=== PATIENT | male | born 1975 | race Hispanic/Latino ===

== ENCOUNTER 2016-11-23 14:32 | Emergency (ER) | payer SELFPAY ==
[2016-11-23 14:32] VITALS: BMI 21.5
[2016-11-23 14:38] VITALS: PULSE 82; RESP 20; TEMP 97.6; O2SAT 100
[2016-11-23 15:04] VITALS: BP 130/70
--- NOTE | 2016-11-23 15:38 | ED PDOC ---
HPI: Headache Time Seen by Provider: 11/23/16 14:40 Chief Complaint (Nursing): Headache Chief Complaint (Provider): Headache History Per: Patient History/Exam Limitations: no limitations Onset/Duration Of Symptoms: Persistent Current Symptoms Are (Timing): Still Present Severity: Moderate Additional Complaint(s): The patient is a 41yo male, PMHx of cluster headaches, seizures, presents to the ED for evaluation of headache. Pt reports his pain is chronic, states he used to take Imitrex but has not used it in "years". Denies any new symptoms. Pt offers no additional medical complaints. Past Medical History Reviewed: Historical Data, Nursing Documentation, Vital Signs Vital Signs: Last Vital Signs Temp 97.6 F 11/23/16 14:34 Pulse 82 11/23/16 14:34 Resp 20 11/23/16 14:34 BP 130/70 11/23/16 15:04 Pulse Ox 100 11/23/16 14:34 - Medical History PMH: Anemia, Anxiety, Depression, Fractures, Kidney Stones, Migraine (Cluster Headaches), Chronic Kidney Disease, Seizures, Chronic Pain (chronic back pain) Denies: Diabetes, Hepatitis, HIV, HTN, Sexually Transmitted Disease - Surgical History Surgical History: Back Surgery - Family History Family History: States: Unknown Family Hx - Social History Current smoker - smoking cessation education provided: Yes (5 cigarettes per day ) Drugs: Other ("dope") - Immunization History Hx Tetanus Toxoid Vaccination: No Hx Influenza Vaccination: No Hx Pneumococcal Vaccination: No - Home Medications Home Medications: Ambulatory Orders Medication Instructions Recorded Ibuprofen [Motrin] 600 mg PO Q6 PRN #20 tab 09/12/14 Oxycodone HCl/Acetaminophen 1 tab PO Q4 #10 tab 09/12/14 [Percocet 325 mg-5 mg] diaZEpam [Valium] 5 mg PO BID PRN #10 tab 09/12/14 levETIRAcetam [Keppra] 500 mg PO BID #0 tab 08/07/15 ALPRAZolam [Xanax] 1 mg PO BID 09/04/15 Oxycodone HCl [Roxicodone] 15 mg PO BID 09/04/15 Meclizine [Meclizine*] 25 mg PO Q8 PRN #12 tab 09/05/15 Acetaminophen [Acetaminophen Extra 1,000 mg PO Q6 PRN #60 tablet 10/04/15 Strength] Naproxen [Naprosyn] 1 tab PO BID PRN #60 tab 10/04/15 Oseltamivir Phosphate [Tamiflu] 75 mg PO BID #10 capsule 10/04/15 - Allergies Allergies/Adverse Reactions: Allergies Allergy/AdvReac Type Severity Reaction Status Date / Time No Known Allergies Allergy Verified 09/12/14 18:52 Review of Systems ROS Statement: Except As Marked, All Systems Reviewed And Found Negative Neurological: Positive for: Headache (hx of cluster headaches, chronic) Physical Exam - Reviewed Nursing Documentation Reviewed: Yes Vital Signs Reviewed: Yes - Physical Exam Appears: Positive for: Well, Non-toxic, No Acute Distress Head Exam: Positive for: ATRAUMATIC, NORMAL INSPECTION, NORMOCEPHALIC Skin: Positive for: Normal Color Eye Exam: Positive for: Normal appearance Neck: Positive for: Normal Cardiovascular/Chest: Positive for: Regular Rate, Rhythm Respiratory: Positive for: Normal Breath Sounds. Negative for: Respiratory Distress Gastrointestinal/Abdominal: Positive for: Normal Exam Extremity: Positive for: Normal ROM Neurologic/Psych: Positive for: Alert, web marketing manager II-XII, Oriented, Gait (stable). Negative for: Motor/Sensory Deficits, Aphasia - Laboratory Results Result Diagrams: 11/23/16 15:59 11/23/16 16:15 - ECG O2 Sat by Pulse Oximetry: 100 (RA) Pulse Ox Interpretation: Normal Medical Decision Making Medical Decision Making: Time: 1530 Impression: headache Possible seizure vs. cluster headaches Plan: -- CT Head -- Reglan 10 mg IVP -- Bloodwork Reassess Time: 1700 CT Head IMPRESSION: No acute intracranial abnormality. Mild age-related global parenchymal volume loss. Time: 1800 Labs reviewed and shows slight anemia, no other pertinent findings, patient aware Pt stable for discharge home. Scribe Attestation: Documented by Elizabeth Ramos acting as a scribe for Hina Logan MD. Provider Attestation: All medical record entries made by the Scribe were at my direction and personally dictated by me. I have reviewed the chart and agree that the record accurately reflects my personal performance of the history, physical exam, medical decision making, and the department course for this patient. I have also personally directed, reviewed, and agree with the discharge instructions and disposition. Disposition - Clinical Impression Clinical Impression: Headache - Patient ED Disposition Is Patient to be Admitted: No Counseled Patient/Family Regarding: Studies Performed, Diagnosis, Need For Followup - Disposition Referrals: [facility] [Outside] [facility] [Outside] Disposition: Routine/Home Disposition Time: 16:00 Condition: IMPROVED Additional Instructions: follow up with your primary doctor in 1-2 days return to the ED with any worsening or concerning symptoms. Instructions: Acute Headache (ED)
[2016-11-23 16:39] LABS: BASO % 0.3 % (0.0-2.0); EOS % 0.4 % (0.0-4.0); HEMOGLOBIN 11.7 g/dL (12.0-18.0); LYMPH # 0.8 K/uL (1.0-4.3); LYMPH % 8.6 % (20.0-40.0); MEAN CELL VOLUME 84.7 fl (80.0-94.0); MEAN CORPUSCULAR HEMOGLOBIN 27.9 pg (27.0-31.0); MEAN CORPUSCULAR HGB CONC 32.9 g/dL (33.0-37.0); MEAN PLATELET VOLUME 7.8 fl (7.2-11.7); MONO % 10.8 % (0.0-10.0); NEUT # 7.2 K/uL (1.8-7.0); NEUT % 79.9 % (50.0-75.0); PLATELET COUNT 199 K/uL (130-400); RBC 4.19 Mil/uL (4.40-5.90); RED CELL DISTRIBUTION WIDTH 15.6 % (11.5-14.5)
--- NOTE | 2016-11-23 16:46 | CT ---
PROCEDURE: CT HEAD WITHOUT CONTRAST. HISTORY: Headache COMPARISON: None available. TECHNIQUE: Axial computed tomography images were obtained through the head/brain without intravenous contrast. Radiation dose: Total exam DLP = 858.04 mGy-cm. This CT exam was performed using one or more of the following dose reduction techniques: Automated exposure control, adjustment of the mA and/or kV according to patient size, and/or use of iterative reconstruction technique. FINDINGS: HEMORRHAGE: No intracranial hemorrhage. BRAIN: Nguyen-white matter differentiation is preserved. There is no mass, mass effect or abnormal extra-axial fluid collection. There is no territorial infarction. VENTRICLES: There is mild global parenchymal volume loss and proportionate enlargement of the ventricles, slightly advanced for the patient's age. . CALVARIUM: There is no calvarial fracture or extracranial soft tissue swelling. PARANASAL SINUSES: Predominantly clear. MASTOID AIR CELLS: Predominantly clear. OTHER FINDINGS: None. IMPRESSION: No acute intracranial abnormality. Mild age-related global parenchymal volume loss.
[2016-11-23 16:51] LABS: ALT/SGPT 39 U/L (21-72); AST/SGOT 25 U/L (17-59); BLOOD UREA NITROGEN 12 mg/dl (9-20); GFR AFRICAN-AMERICAN > 60; GFR NON-AFRICAN AMERICAN > 60
[2016-11-23 17:47] LABS: BANDS 3 % (0-2); LYMPHOCYTE 10 % (20-50); MONOCYTE 11 % (0-10); NEUTROPHIL 76 % (42-75); PLATELET ESTIMATE NORMAL (NORMAL); TOTAL CELLS COUNTED 100
[2016-11-23 17:48] LABS: ANISOCYTOSIS SLIGHT; HYPOCHROMIC SLIGHT; MICROCYTOSIS SLIGHT; POIKILOCYTOSIS SLIGHT
== END 2016-11-23 19:21 | disposition home or self-care (01) ==
LOC: H.ER 14:32
DX: R51 Headache (principal)
CPT/HCPCS: 70450; 80053; 85025; 96374; 99282; J2765

== ENCOUNTER 2016-12-22 03:53 | Emergency (ER) | payer OTHER ==
[2016-12-22 03:53] VITALS: BMI 21.5
[2016-12-22 03:59] VITALS: BP 135/78; PULSE 78; RESP 17; TEMP 98.1; O2SAT 99
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
== END 2016-12-22 05:08 | disposition home or self-care (01) ==
LOC: H.ER 03:53
DX: R68.84 Jaw pain (principal)

== ENCOUNTER 2017-03-04 08:00 | Emergency (ER) | payer MEDICAID ==
[2017-03-04 08:07] VITALS: BP 105/62; PULSE 51; RESP 16; TEMP 96.5; O2SAT 100
[2017-03-04 08:08] VITALS: BMI 23.1
--- NOTE | 2017-03-04 08:43 | ED PDOC ---
Lower Extremity Pain/Injury Time Seen by Provider: 03/04/17 08:09 Chief Complaint (Nursing): Lower Extremity Problem/Injury Chief Complaint (Provider): Left foot pain History Per: Patient History/Exam Limitations: no limitations Onset/Duration Of Symptoms: Days (x4) Current Symptoms Are (Timing): Still Present Additional Complaint(s): Aquiles is a 41 y/o male who presents to the ED for evaluation of left foot pain for 4 days. Patient able to ambulate. He denies direct trauma or injury to the foot. Patient is not cooperative with history. PMD: None Past Medical History Reviewed: Historical Data, Nursing Documentation, Vital Signs Vital Signs: Last Vital Signs Temp 96.5 F L 03/04/17 08:06 Pulse 51 L 03/04/17 08:06 Resp 16 03/04/17 08:06 BP 105/62 03/04/17 08:06 Pulse Ox 100 03/04/17 08:06 - Medical History PMH: Anemia, Anxiety, Depression, Fractures, Kidney Stones, Migraine (Cluster Headaches), Chronic Kidney Disease, Seizures, Chronic Pain (chronic back pain) Denies: Diabetes, Hepatitis, HIV, HTN, Sexually Transmitted Disease - Surgical History Surgical History: Back Surgery - Family History Family History: States: Unknown Family Hx - Social History Current smoker - smoking cessation education provided: Yes Alcohol: None Drugs: Opiates - Immunization History Hx Tetanus Toxoid Vaccination: No Hx Influenza Vaccination: No Hx Pneumococcal Vaccination: No - Home Medications Home Medications: Ambulatory Orders Medication Instructions Recorded Ibuprofen [Motrin] 600 mg PO Q6 PRN #20 tab 09/12/14 Oxycodone HCl/Acetaminophen 1 tab PO Q4 #10 tab 09/12/14 [Percocet 325 mg-5 mg] diaZEpam [Valium] 5 mg PO BID PRN #10 tab 09/12/14 levETIRAcetam [Keppra] 500 mg PO BID #0 tab 08/07/15 ALPRAZolam [Xanax] 1 mg PO BID 09/04/15 Oxycodone HCl [Roxicodone] 15 mg PO BID 09/04/15 Meclizine [Meclizine*] 25 mg PO Q8 PRN #12 tab 09/05/15 Acetaminophen [Acetaminophen Extra 1,000 mg PO Q6 PRN #60 tablet 05/16/16 Strength] Naproxen [Naprosyn] 1 tab PO BID PRN #60 tab 10/04/15 Oseltamivir Phosphate [Tamiflu] 75 mg PO BID #10 capsule 10/04/15 - Allergies Allergies/Adverse Reactions: Allergies Allergy/AdvReac Type Severity Reaction Status Date / Time No Known Allergies Allergy Verified 03/04/17 08:12 Review of Systems ROS Statement: Except As Marked, All Systems Reviewed And Found Negative Musculoskeletal: Positive for: Foot Pain (Left) Physical Exam - Reviewed Nursing Documentation Reviewed: Yes Vital Signs Reviewed: Yes - Physical Exam Appears: Positive for: Well, Non-toxic, No Acute Distress Extremity: Positive for: Normal ROM, Other (Left plantar foot with maceration, but no erythema or edema) Neurologic/Psych: Positive for: Alert, Oriented - ECG O2 Sat by Pulse Oximetry: 100 (RA) Pulse Ox Interpretation: Normal Medical Decision Making Medical Decision Making: Clinical Impression: Skin maceration Upon provider evaluation patient is medically stable, and requires no further treatment in the ED at this time. Patient will be discharged home. Counseling was provided and all questions were answered regarding diagnosis and need for follow up with Podiatry clinic. There is agreement to discharge plan. Return if symptoms persist or worsen. Scribe Attestation: Documented by Jany Arreaga, acting as a scribe for Claudia Ny MD Provider Scribe Attestation: All medical record entries made by the Scribe were at my direction and personally dictated by me. I have reviewed the chart and agree that the record accurately reflects my personal performance of the history, physical exam, medical decision making, and the department course for this patient. I have also personally directed, reviewed, and agree with the discharge instructions and disposition. Disposition - Clinical Impression Clinical Impression: Skin maceration - Patient ED Disposition Is Patient to be Admitted: No Counseled Patient/Family Regarding: Diagnosis, Need For Followup - Disposition Referrals: Podiatry Clinic [Outside] Disposition: Routine/Home Disposition Time: 08:35 Condition: STABLE Instructions: Itchy Skin (ED) Forms: [employer] (Irish)
== END 2017-03-04 09:37 | disposition home or self-care (01) ==
LOC: H.ER 08:00
DX: R23.8 Other skin changes (principal)

== ENCOUNTER 2017-05-03 14:54 | Emergency (ER) | payer OTHER ==
[2017-05-03 14:55] VITALS: BMI 23.1
[2017-05-03] MEDS ORDERED: Atropine-Diphenoxylate 0.025-2.5 mg Tab PO STA (15:48)
--- NOTE | 2017-05-03 16:05 | ED PDOC ---
HPI: Abdomen Time Seen by Provider: 05/03/17 15:35 Chief Complaint (Nursing): Abdominal Pain Chief Complaint (Provider): Abdominal pain and diarrhea History Per: Patient History/Exam Limitations: no limitations Onset/Duration Of Symptoms: Days (4) Additional Complaint(s): Patient is a 41 y/o undomiciled male with a past medical history of depression and opiate dependence presenting to the emergency department for stomach pain and diarrhea ongoing for four days. Describes the pain as an abdominal cramping quality that occurs intermittently in a waxing and waning manner. Notes no changes to his diet, which consists of whatever I can get a hold of ( referring to pizza and [employer]). Reports that the diarrhea is watery, brown, and non-bloody with three or four episodes occurring each day since onset. Denies loss of appetite, nausea, vomiting, or other complaints. Also notes taking Pepto-Bismol and Imodium without any significant relief. Of note, patient was recently hospitalized for a left arm infection due to a retained needle in his arm, secondary to IV drug abuse. Admits that since his discharge he has not continued his antibiotic treatment as prescribed. Denies any fever or changes in his arm. PCP: none provided. Past Medical History Reviewed: Historical Data, Nursing Documentation, Vital Signs Vital Signs: Last Vital Signs Temp 97.5 F L 05/03/17 15:08 Pulse 74 05/03/17 15:08 Resp 18 05/03/17 15:08 BP 108/60 05/03/17 15:08 Pulse Ox 100 05/03/17 16:13 - Medical History PMH: Anemia, Anxiety, Depression, Fractures, Kidney Stones, Migraine (Cluster Headaches), Chronic Kidney Disease, Seizures, Chronic Pain (chronic back pain) Denies: Diabetes, Hepatitis, HIV, HTN, Sexually Transmitted Disease - Surgical History Surgical History: Back Surgery Other surgeries: Bilateral knee surgery - Family History Family History: States: No Known Family Hx - Living Arrangements Living Arrangements: Other (undomiciled) - Social History Current smoker - smoking cessation education provided: Yes Ex-Smoker (has not smoked in the last 12 months): No Alcohol: None Drugs: Opiates (heroin) - Immunization History Hx Tetanus Toxoid Vaccination: No Hx Influenza Vaccination: No Hx Pneumococcal Vaccination: No - Home Medications Home Medications: Ambulatory Orders Medication Instructions Recorded Amoxicillin/Clavulanate [Augmentin 1 tab PO Q8 #32 tab 04/20/17 500 MG-125 MG Tab] Doxycycline Hyclate [Doryx] 100 mg PO Q12 #8 cap 04/20/17 Atropine/Diphenoxylate [Lonox 2 tab PO Q6 PRN #30 tab 05/03/17 0.025 MG-2.5 MG] Ciprofloxacin [Cipro] 1 tab PO BID #20 tab 05/03/17 metroNIDAZOLE [Flagyl] 500 mg PO TID #30 tab 05/03/17 - Allergies Allergies/Adverse Reactions: Allergies Allergy/AdvReac Type Severity Reaction Status Date / Time No Known Allergies Allergy Verified 04/19/17 02:53 Review of Systems ROS Statement: Except As Marked, All Systems Reviewed And Found Negative Constitutional: Negative for: Fever, Other (change in appetite) Gastrointestinal: Positive for: Abdominal Pain (cramping, intermittent, waxing and waning), Diarrhea (watery, brown, non-bloody). Negative for: Nausea, Vomiting Physical Exam - Reviewed Nursing Documentation Reviewed: Yes Vital Signs Reviewed: Yes - Physical Exam Appears: Positive for: No Acute Distress (On my initial arrival to room, pt sleeping deeply and comfortably, needed to yell loudly in order to rouse) Skin: Positive for: Warm, Dry (multiple linear scars to hands and arms) Gastrointestinal/Abdominal: Positive for: Bowel Sounds, Soft. Negative for: Tenderness, Mass, Distended, Guarding, Rebound Extremity: Positive for: Swelling (LEFT forearm: swelling to forearm without erythema or purulence) Neurologic/Psych: Positive for: Alert. Negative for: Motor/Sensory Deficits - ECG O2 Sat by Pulse Oximetry: 100 (RA) Pulse Ox Interpretation: Normal Medical Decision Making Medical Decision Making: Time: 15:48 Initial Impression: Diarrhea and abdominal pain Differential diagnoses include but are not limited to antibiotic associated diarrhea, C Diff colitis, and gastroenteritis. Initial Plan: Atropine/Diphenoxylate 2 tab PO Bentyl 20 mg PO Stool Culture C Diff toxin stat Reevaluation Patients chart from recent hospitalization at [facility] was reviewed. Noted that patient was given IV antibiotics and advised to continue course of Augmentin and doxycycline treatment. Pt in no distress. Vitals stable. Sleeps comfortably in room. No diarrhea episodes in ER. Will treat empirically and stable for discharge to follow up outpatient. Scribe Attestation: Documented by Ailyn Dhillon, acting as a scribe for Elvira Geronimo MD. Provider Scribe Attestation: All medical record entries made by the Scribe were at my direction and personally dictated by me. I have reviewed the chart and agree that the record accurately reflects my personal performance of the history, physical exam, medical decision making, and the department course for this patient. I have also personally directed, reviewed, and agree with the discharge instructions and disposition. Disposition - Clinical Impression Clinical Impression: Abdominal pain, Diarrhea Counseled Patient/Family Regarding: Studies Performed, Diagnosis, Need For Followup, Rx Given - Disposition Referrals: [facility] [Outside] - 05/04/17 Disposition: Routine/Home Disposition Time: 17:12 Condition: GOOD Prescriptions: Atropine/Diphenoxylate [Lonox 0.025 MG-2.5 MG] 2 tab PO Q6 PRN #30 tab PRN Reason: Diarrhea Ciprofloxacin [Cipro] 1 tab PO BID #20 tab metroNIDAZOLE [Flagyl] 500 mg PO TID #30 tab Instructions: Acute Diarrhea (ED), Nutrition Tips for Relief of Diarrhea (ED)
[2017-05-03 18:35] VITALS: BP 126/76; PULSE 78; RESP 16; TEMP 97.6; O2SAT 98
== END 2017-05-03 18:38 | disposition home or self-care (01) ==
LOC: H.ER 14:54
DX: R10.9 Unspecified abdominal pain (principal); R19.7 Diarrhea, unspecified; F32.9 Major depressive disorder, single episode, unspecified; G89.29 Other chronic pain; F41.9 Anxiety disorder, unspecified; F17.200 Nicotine dependence, unspecified, uncomplicated; Z87.442 Personal history of urinary calculi

== ENCOUNTER 2017-08-20 17:31 | Emergency (ER) | payer OTHER ==
[2017-08-20 17:31] VITALS: BMI 23.1
[2017-08-20 17:42] VITALS: BP 109/72; PULSE 84; RESP 18; TEMP 97.7; O2SAT 98
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
== END 2017-08-20 20:15 | disposition home or self-care (01) ==
LOC: H.ER 17:31
DX: S93.402A Sprain of unspecified ligament of left ankle, initial encounter (principal); Y04.0XXA Assault by unarmed brawl or fight, initial encounter; Y92.89 Other specified places as the place of occurrence of the external cause; F32.9 Major depressive disorder, single episode, unspecified; F41.9 Anxiety disorder, unspecified

== ENCOUNTER 2017-09-15 12:34 | Emergency (ER) | payer OTHER ==
[2017-09-15 12:34] VITALS: BMI 23.1
[2017-09-15 12:41] VITALS: BP 128/78; PULSE 98; RESP 18; TEMP 98.3; O2SAT 99
--- NOTE | 2017-09-15 14:06 | ED PDOC ---
HPI: Psych/Substance Abuse Time Seen by Provider: 09/15/17 12:48 Chief Complaint (Nursing): Substance Abuse Chief Complaint (Provider): Substance Abuse History Per: Patient History/Exam Limitations: no limitations Onset/Duration Of Symptoms: Days (09/15/17) Modifying Factor(s): Other (heroin) Associated Symptoms: Anxiety. denies: Depression, Suicidal Thoughts, Suicidal Plan Additional Complaint(s): 42 yo M brought to the ED by EMS after he was found sleeping outside of [facility]. Patient admits to using 1 bag of heroin today. Patient is also homeless and has a history of anxiety and takes xanax. Otherwise: (-) hallucinations, (-) suicidal ideation, (-) homicidal ideation, (-) trauma, (-) fever, (-) headache, (-) injuries (-) dyspnea, (-) vomiting, (-) nausea, (-) abdominal pain (-) depression, (-) any other complaints at all. PMD: Unruly Newman Past Medical History Reviewed: Historical Data, Nursing Documentation, Vital Signs Vital Signs: Last Vital Signs Temp 98.3 F 09/15/17 12:36 Pulse 98 H 09/15/17 12:36 Resp 18 09/15/17 12:36 BP 128/78 09/15/17 12:36 Pulse Ox 99 09/15/17 12:36 - Medical History PMH: Anemia, Anxiety, Depression, Fractures, Hepatitis, Kidney Stones, Migraine (Cluster Headaches), Chronic Kidney Disease, Seizures, Chronic Pain (chronic back pain) Denies: Diabetes, HIV, HTN, Sexually Transmitted Disease - Surgical History Surgical History: Back Surgery - Family History Family History: States: Unknown Family Hx - Social History Current smoker - smoking cessation education provided: Yes (Light Smoker < 10 Cigarettes Daily) Drugs: Other (heroin) - Immunization History Hx Tetanus Toxoid Vaccination: No Hx Influenza Vaccination: No Hx Pneumococcal Vaccination: No - Home Medications Home Medications: Ambulatory Orders Medication Instructions Recorded Amoxicillin/Clavulanate [Augmentin 1 tab PO Q8 #32 tab 04/20/17 500 MG-125 MG Tab] Doxycycline Hyclate [Doryx] 100 mg PO Q12 #8 cap 04/20/17 Atropine/Diphenoxylate [Lonox 2 tab PO Q6 PRN #30 tab 05/03/17 0.025 MG-2.5 MG] Ciprofloxacin [Cipro] 1 tab PO BID #20 tab 05/03/17 metroNIDAZOLE [Flagyl] 500 mg PO TID #30 tab 05/03/17 - Allergies Allergies/Adverse Reactions: Allergies Allergy/AdvReac Type Severity Reaction Status Date / Time No Known Allergies Allergy Verified 04/19/17 02:53 Review of Systems ROS Statement: Except As Marked, All Systems Reviewed And Found Negative Constitutional: Negative for: Fever Gastrointestinal: Negative for: Nausea, Vomiting, Abdominal Pain Neurological: Negative for: Headache, Other (trauma) Psych: Positive for: Anxiety. Negative for: Depression, Suicidal ideation ( homicidal ideation) Physical Exam - Physical Exam Comments: GENERAL APPEARANCE: Patient is awake, alert, oriented x 3, in no acute distress , is ill kept. SKIN: Warm, dry; (-) cyanosis HEAD: (-) scalp swelling, (-) scalp tenderness. EYES: (-) conjunctival pallor, (-) scleral icterus, (-) nystagmus. ENMT: Mucous membranes moist. Airway patent: (-) stridor. NECK: (-) tenderness, (-) stiffness, (-) lymphadenopathy. CHEST AND RESPIRATORY: (-) rales, (-) rhonchi, (-) wheezes; breath sounds equal. ABDOMEN: Soft, (-) distention, (-) tenderness, (-) guarding. NEURO AND PSYCH: Mental status as above. Affect: Calm and cooperative. scale installer: Intact. Pupils equal and reactive; EOMI; (-) facial asymmetry; tongue and uvula midline. Strength symmetric. - ECG O2 Sat by Pulse Oximetry: 99 (RA) Pulse Ox Interpretation: Normal Medical Decision Making Medical Decision Making: Time: 1248 Patient presents in no acute distress, is awake, alert and oriented x3 with an otherwise normal exam. VS wnl. There is no further need for any emergent treatment or diagnostic workup necessary at this time. Advised to follow up with the clinic in 1-2 days without fail. Return to the emergency room at any time for any new or worsening symptoms. Patient states he fully agrees with and understands discharge instructions. States that he agrees with the plan and disposition. Verbalized and repeated discharge instructions and plan. I have given the patient opportunity to ask any additional questions. Scribe Attestation: Documented by Rowan Fink, acting as a scribe for Anastasia Quesada PA-C Provider Scribe Attestation: All medical record entries made by the Scribe were at my direction and personally dictated by me. I have reviewed the chart and agree that the record accurately reflects my personal performance of the history, physical exam, medical decision making, and the department course for this patient. I have also personally directed, reviewed, and agree with the discharge instructions and disposition. Disposition - Clinical Impression Clinical Impression: History of heroin use - Patient ED Disposition Is Patient to be Admitted: No - Disposition Referrals: [facility] [Outside] Disposition: Routine/Home Disposition Time: 13:00 Condition: STABLE Instructions: Drug Abuse and Drug Addiction (DC) Forms: [employer] (Hungarian) - PA / FACILITIES OFFICER / Resident Statement MD/ has reviewed & agrees with the documentation as recorded.
== END 2017-09-15 13:28 | disposition home or self-care (01) ==
LOC: H.ER 12:34
DX: F11.20 Opioid dependence, uncomplicated (principal)

== ENCOUNTER 2017-10-16 22:13 | Emergency (ER) | payer OTHER ==
[2017-10-16 22:13] VITALS: BMI 23.1
== END 2017-10-16 22:50 | disposition left against medical advice (07) ==
LOC: H.ER 22:13
DX: Z02.89 Encounter for other administrative examinations (principal)

== ENCOUNTER 2018-04-06 14:17 | Emergency (ER) | payer SELFPAY ==
[2018-04-06 14:18] VITALS: BMI 23.1
[2018-04-06 14:24] VITALS: RESP 14; TEMP 98; O2SAT 92
[2018-04-06 14:43] VITALS: BP 136/78
--- NOTE | 2018-04-06 15:06 | ED PDOC ---
HPI: Psych/Substance Abuse Time Seen by Provider: 04/06/18 14:22 Chief Complaint (Nursing): Substance Abuse Chief Complaint (Provider): heroin use History Per: Patient, EMS Additional Complaint(s): 42-year-old male presents for evaluation for possible substance abuse. Patient was found asleep on the sidewalk. He admits to using heroin today. Of any other drugs and denies any alcohol use. PMD: none Past Medical History Reviewed: Historical Data, Nursing Documentation, Vital Signs Vital Signs: Last Vital Signs Temp 98.0 F 04/06/18 14:23 Pulse 89 04/06/18 14:23 Resp 14 04/06/18 14:23 BP Pulse Ox 92 L 04/06/18 14:23 - Medical History PMH: Anemia, Anxiety, Depression, Fractures, Hepatitis, Kidney Stones, Migraine (Cluster Headaches), Chronic Kidney Disease, Seizures, Chronic Pain (chronic back pain) - Surgical History Surgical History: Back Surgery - Family History Family History: States: No Known Family Hx - Living Arrangements Living Arrangements: Other (non-domiciled) - Social History Current smoker - smoking cessation education provided: Yes Alcohol: Social Drugs: Opiates - Home Medications Home Medications: Ambulatory Orders Medication Instructions Recorded Amoxicillin/Clavulanate [Augmentin 1 tab PO Q8 #32 tab 04/20/17 500 MG-125 MG Tab] Doxycycline Hyclate [Doryx] 100 mg PO Q12 #8 cap 04/20/17 Atropine/Diphenoxylate [Lonox 2 tab PO Q6 PRN #30 tab 05/03/17 0.025 MG-2.5 MG] Ciprofloxacin [Cipro] 1 tab PO BID #20 tab 05/03/17 metroNIDAZOLE [Flagyl] 500 mg PO TID #30 tab 05/03/17 - Allergies Allergies/Adverse Reactions: Allergies Allergy/AdvReac Type Severity Reaction Status Date / Time No Known Allergies Allergy Verified 04/06/18 14:23 Review of Systems ROS Statement: Except As Marked, All Systems Reviewed And Found Negative Psych: Positive for: Other (heroin abuse). Negative for: Suicidal ideation Physical Exam - Reviewed Nursing Documentation Reviewed: Yes Vital Signs Reviewed: Yes - Physical Exam Appears: Positive for: Well, Non-toxic, No Acute Distress Skin: Positive for: Normal Color. Negative for: Rash Eye Exam: Positive for: Normal appearance, EOMI, PERRL Cardiovascular/Chest: Positive for: Regular Rate, Rhythm Respiratory: Positive for: Normal Breath Sounds. Negative for: Respiratory Distress Extremity: Positive for: Normal ROM Neurologic/Psych: Positive for: Alert, Oriented - ECG O2 Sat by Pulse Oximetry: 92 Pulse Ox Interpretation: Normal Medical Decision Making Medical Decision Makin42 y/o with heroin abuse. Patient is awake and alert with steady gait. He is agitated as he does not want to be here. He offers no acute complaints. Patient is stable for discharge. Disposition - Clinical Impression Clinical Impression: Heroin abuse - Patient ED Disposition Is Patient to be Admitted: No - Disposition Referrals: [facility] [Outside] Disposition: Routine/Home Disposition Time: 17:25 Condition: STABLE Instructions: Drug Abuse and Drug Addiction (DC), Opioid Use Disorder Forms: [employer] (Kyrgyz)
[2018-04-06 15:42] VITALS: PULSE 78
== END 2018-04-06 16:37 | disposition home or self-care (01) ==
LOC: H.ER 14:17
DX: F11.10 Opioid abuse, uncomplicated (principal); F17.200 Nicotine dependence, unspecified, uncomplicated; Z86.59 Personal history of other mental and behavioral disorders; G89.29 Other chronic pain; N18.9 Chronic kidney disease, unspecified; Z87.442 Personal history of urinary calculi